=== PATIENT | male | born 1940 | race Asian ===

== ENCOUNTER 2016-04-30 15:51 | Inpatient (IN) | payer MEDICARE, OTHER ==
[~2016-04-30] VITALS: Ht 167.6 cm; Wt 67.1 kg
[2016-04-30] MEDS ORDERED: ALBUTEROL SULFATE 2.5 MG/0.5 ML NEB SOLUTION NEB PRN (19:00)
[2016-04-30] MEDS ORDERED: DOCUSATE SODIUM 283 MG/5 ML MINI-ENEMA PR PRN (19:00)
[2016-04-30] MEDS ORDERED: ACETAMINOPHEN 325 MG TABLET PO PRN (19:00)
[2016-04-30] MEDS ORDERED: ALBUTEROL SULFATE HFA 90 MCG/PUFF 8 GM INHALER IH PRN (19:00)
[2016-04-30 20:33] VITALS: BP 118/70
[2016-04-30] MEDS: ACETAMINOPHEN 325 MG TABLET PO PRN (21:05)
[2016-04-30] MEDS: SENNA 187 MG TABLET PO SCH (21:05)
[2016-04-30] MEDS: MIRTAZAPINE 15 MG TABLET PO SCH (21:05)
[2016-04-30] MEDS: DOCUSATE SODIUM 100 MG CAPSULE PO SCH (21:05)
[2016-04-30] MEDS: TAMSULOSIN HCL 0.4 MG CAPSULE PO SCH (21:06)
[2016-04-30] MEDS: LISINOPRIL 20 MG TABLET PO SCH (21:06)
[2016-04-30 21:30] LABS: APPEARANCE,URINE CLEAR (CLEAR); GLUCOSE, URINE (UA) NEGATIVE (NEGATIVE); KETONES,URINE NEGATIVE (NEGATIVE); LEUKOCYTE ESTERASE ,URINE NEGATIVE (NEGATIVE); OCCULT BLOOD,URINE TRACE (NEGATIVE); PH,URINE 6.5 (5.0-8.0); PROTEIN,URINE NEGATIVE (NEGATIVE)
[2016-04-30 21:45] VITALS: BP 118/74
[2016-04-30 21:47] LABS: SQUAMOUS EPITHELIAL CELL,UR Rare /LPF (None Seen)
[2016-04-30 21:48] LABS: WBC,URINE 0-2 /HPF (0-5)
[2016-04-30] MEDS: HYDROCODONE/CHLORPHEN POLIS 10-8 MG/5 ML ORAL.SYG PO PRN (23:46)
[2016-05-01 00:02] VITALS: BP 122/50
[2016-05-01] MEDS ORDERED: INFLUENZA VIRUS VACCINE QVS 2016-17 (3YR+)/PF 60 MCG/0.5 ML SYRINGE IM ONE (00:30)
[2016-05-01] MEDS ORDERED: PNEUMOCOCCAL VACCINE POLYVALENT 0.5 ML VIAL [PPSV23] IM ONE (00:30)
[2016-05-01] MEDS: ACETAMINOPHEN 325 MG TABLET PO PRN ×3 (04:26→13:30)
[2016-05-01] MEDS: LEVOTHYROXINE SODIUM 50 MCG TABLET PO SCH (07:04)
[2016-05-01 08:04] VITALS: BP 94/53
[2016-05-01 08:05] LABS: BASOPHILS # (AUTO) 0.02 K/uL (0.00-0.20); BASOPHILS % (AUTO) 0.3 % (0.0-2.0); EOSINOPHILS # (AUTO) 0.24 K/uL (0.00-0.70); EOSINOPHILS % (AUTO) 3.63 % (1.0-6.0); HEMATOCRIT 45.8 % (41-53); LYMPHOCYTES # (AUTO) 1.9 K/uL (1.0-4.8); LYMPHOCYTES % (AUTO) 28.6 % (22.0-44.0); MEAN CORPUSCULAR HEMOGLOBIN 28.2 pg (26.0-34.0); MEAN CORPUSCULAR HGB CONC 32.8 G/dL (31.0-37.0); MEAN CORPUSCULAR VOLUME 86 fL (80-100); MONOCYTES # (AUTO) 0.9 K/uL (0.1-1.0); MONOCYTES % (AUTO) 12.7 % (2.0-9.0); NEUTROPHILS # (AUTO) 3.7 K/uL (1.8-7.7); NEUTROPHILS % (AUTO) 54.8 % (40.0-70.0); PLATELET COUNT (AUTO) 172 K/uL (150-450); RED BLOOD CELL COUNT(AUTO) 5.33 MIL/uL (4.50-5.90); RED CELL DISTRIBUTION WIDTH 15.6 % (11.5-14.5); WHITE BLOOD COUNT (AUTO) 6.7 K/uL (4.5-11.0)
[2016-05-01 08:22] LABS: ALANINE AMINOTRANSFERASE 24 U/L (12-78); ALBUMIN 3.5 g/dL (3.4-5.0); ANION GAP 6 mmol/L (8-16); ASPARTATE AMINOTRANSFERASE 19 U/L (15-37); BILIRUBIN,TOTAL 0.6 mg/dL (0.1-1.0); CALCIUM, TOTAL 8.9 mg/dL (8.8-10.5); CARBON DIOXIDE 28 mmol/L (22-29); CHLORIDE 103 mmol/L (98-107); CREATININE 0.91 mg/dL (0.60-1.30); GLOMERULAR FILTR. RATE CALC > 60 mL/min (>60); POTASSIUM 4.1 mmol/L (3.5-5.1); SODIUM SERUM 137 mmol/L (136-145); TOTAL PROTEIN, SERUM 7.4 g/dL (6.4-8.2); UREA NITROGEN, BLOOD 17 mg/dL (7-18)
[2016-05-01] MEDS: DOCUSATE SODIUM 100 MG CAPSULE PO SCH ×2 (08:43→21:17)
[2016-05-01] MEDS: ATORVASTATIN CALCIUM 20 MG TABLET PO SCH (08:43)
[2016-05-01] MEDS: CLOPIDOGREL BISULFATE 75 MG TABLET PO SCH (08:44)
[2016-05-01] MEDS: LISINOPRIL 20 MG TABLET PO SCH ×2 (09:00→21:17)
[2016-05-01 14:15] VITALS: BP 119/64
[2016-05-01 15:47] VITALS: BP 120/75
[2016-05-01] MEDS: HYDROCODONE/CHLORPHEN POLIS 10-8 MG/5 ML ORAL.SYG PO PRN (21:17)
[2016-05-01] MEDS: SENNA 187 MG TABLET PO SCH (21:17)
[2016-05-01] MEDS: TAMSULOSIN HCL 0.4 MG CAPSULE PO SCH (21:18)
[2016-05-01] MEDS: MIRTAZAPINE 15 MG TABLET PO SCH (21:18)
[2016-05-01] MEDS: TEMAZEPAM 15 MG CAPSULE PO PRN (21:18)
[2016-05-01 23:43] VITALS: BP 110/67
[2016-05-02] MEDS: LEVOTHYROXINE SODIUM 50 MCG TABLET PO SCH (06:13)
[2016-05-02 07:57] VITALS: BP 96/74
[2016-05-02] MEDS: ATORVASTATIN CALCIUM 20 MG TABLET PO SCH (08:07)
[2016-05-02] MEDS: CLOPIDOGREL BISULFATE 75 MG TABLET PO SCH (08:07)
[2016-05-02] MEDS: DOCUSATE SODIUM 100 MG CAPSULE PO SCH ×2 (08:07→21:38)
[2016-05-02] MEDS: LISINOPRIL 20 MG TABLET PO SCH ×2 (09:00→21:39)
[2016-05-02 16:25] VITALS: BP 114/72
[2016-05-02 20:26] VITALS: BP 135/75
[2016-05-02] MEDS: TAMSULOSIN HCL 0.4 MG CAPSULE PO SCH (21:38)
[2016-05-02] MEDS: SENNA 187 MG TABLET PO SCH (21:39)
[2016-05-02] MEDS: MIRTAZAPINE 15 MG TABLET PO SCH (21:39)
[2016-05-02] MEDS ORDERED: 0.9% SODIUM CHLORIDE 5 ML NEB SOLUTION NEB ONE (21:46)
[2016-05-02] MEDS ORDERED: TraMADol HCL 50 MG TABLET PO PRN (22:00)
[2016-05-02] MEDS: TEMAZEPAM 15 MG CAPSULE PO PRN (22:09)
[2016-05-02 23:52] VITALS: BP 134/69
[2016-05-03] MEDS: ACETAMINOPHEN 325 MG TABLET PO PRN (00:28)
[2016-05-03] MEDS: LEVOTHYROXINE SODIUM 50 MCG TABLET PO SCH (06:06)
[2016-05-03 07:30] VITALS: BP 102/59
[2016-05-03] MEDS: DOCUSATE SODIUM 100 MG CAPSULE PO SCH ×2 (08:46→21:27)
[2016-05-03] MEDS: ATORVASTATIN CALCIUM 20 MG TABLET PO SCH (08:46)
[2016-05-03] MEDS: CLOPIDOGREL BISULFATE 75 MG TABLET PO SCH (08:46)
[2016-05-03] MEDS: LISINOPRIL 20 MG TABLET PO SCH ×2 (09:00→21:00)
[2016-05-03] MEDS: HYDROCODONE/CHLORPHEN POLIS 10-8 MG/5 ML ORAL.SYG PO PRN ×2 (09:53→23:07)
[2016-05-03 15:57] VITALS: BP 107/72
[2016-05-03 21:00] VITALS: BP 93/52
[2016-05-03] MEDS: TAMSULOSIN HCL 0.4 MG CAPSULE PO SCH (21:27)
[2016-05-03] MEDS: SENNA 187 MG TABLET PO SCH (21:27)
[2016-05-03] MEDS: MIRTAZAPINE 15 MG TABLET PO SCH (21:27)
[2016-05-03] MEDS: TEMAZEPAM 15 MG CAPSULE PO PRN (22:50)
[2016-05-03 23:13] VITALS: BP 120/73
[2016-05-04] MEDS: LEVOTHYROXINE SODIUM 50 MCG TABLET PO SCH (06:18)
[2016-05-04 07:55] VITALS: BP 112/68
[2016-05-04] MEDS: ACETAMINOPHEN 325 MG TABLET PO PRN (07:59)
[2016-05-04] MEDS: ATORVASTATIN CALCIUM 20 MG TABLET PO SCH (08:40)
[2016-05-04] MEDS: LISINOPRIL 20 MG TABLET PO SCH ×2 (08:40→20:33)
[2016-05-04] MEDS: CLOPIDOGREL BISULFATE 75 MG TABLET PO SCH (08:40)
[2016-05-04] MEDS: DOCUSATE SODIUM 100 MG CAPSULE PO SCH ×2 (08:40→20:33)
[2016-05-04] MEDS: HYDROCODONE/CHLORPHEN POLIS 10-8 MG/5 ML ORAL.SYG PO PRN (14:37)
[2016-05-04 15:59] VITALS: BP 114/70
[2016-05-04 20:33] VITALS: BP 131/87
[2016-05-04] MEDS: TAMSULOSIN HCL 0.4 MG CAPSULE PO SCH (20:33)
[2016-05-04] MEDS: SENNA 187 MG TABLET PO SCH (20:33)
[2016-05-04] MEDS: MIRTAZAPINE 15 MG TABLET PO SCH (20:33)
[2016-05-04 23:00] VITALS: BP 111/64
[2016-05-04] MEDS: TEMAZEPAM 15 MG CAPSULE PO PRN (23:19)
[2016-05-05] MEDS: LEVOTHYROXINE SODIUM 50 MCG TABLET PO SCH (06:45)
[2016-05-05 07:21] VITALS: BP 102/61
[2016-05-05] MEDS: CLOPIDOGREL BISULFATE 75 MG TABLET PO SCH (08:40)
[2016-05-05] MEDS: ATORVASTATIN CALCIUM 20 MG TABLET PO SCH (08:41)
[2016-05-05 08:42] VITALS: BP 117/80
[2016-05-05] MEDS: DOCUSATE SODIUM 100 MG CAPSULE PO SCH ×2 (08:42→21:01)
[2016-05-05] MEDS: ACETAMINOPHEN 325 MG TABLET PO PRN (08:42)
[2016-05-05] MEDS: LISINOPRIL 20 MG TABLET PO SCH ×2 (08:46→21:01)
[2016-05-05] MEDS: HYDROCODONE/CHLORPHEN POLIS 10-8 MG/5 ML ORAL.SYG PO PRN (14:38)
[2016-05-05 15:20] VITALS: BP 109/59
[2016-05-05] MEDS: MIRTAZAPINE 15 MG TABLET PO SCH (21:01)
[2016-05-05] MEDS: SENNA 187 MG TABLET PO SCH (21:01)
[2016-05-05] MEDS: TAMSULOSIN HCL 0.4 MG CAPSULE PO SCH (21:01)
[2016-05-05] MEDS: TEMAZEPAM 15 MG CAPSULE PO PRN (22:03)
[2016-05-05 23:36] VITALS: BP 118/60
[2016-05-06] MEDS: LEVOTHYROXINE SODIUM 50 MCG TABLET PO SCH (06:20)
[2016-05-06 08:08] VITALS: BP 105/64
[2016-05-06] MEDS: CLOPIDOGREL BISULFATE 75 MG TABLET PO SCH (08:19)
[2016-05-06] MEDS: DOCUSATE SODIUM 100 MG CAPSULE PO SCH ×2 (08:19→20:49)
[2016-05-06] MEDS: ATORVASTATIN CALCIUM 20 MG TABLET PO SCH (08:19)
[2016-05-06 15:00] VITALS: BP 118/69
[2016-05-06] MEDS: HYDROCODONE/CHLORPHEN POLIS 10-8 MG/5 ML ORAL.SYG PO PRN (16:42)
[2016-05-06] MEDS: TAMSULOSIN HCL 0.4 MG CAPSULE PO SCH (20:48)
[2016-05-06] MEDS: MIRTAZAPINE 15 MG TABLET PO SCH (20:49)
[2016-05-06] MEDS: SENNA 187 MG TABLET PO SCH (20:49)
[2016-05-06] MEDS: LISINOPRIL 10 MG TABLET PO SCH (20:49)
[2016-05-06] MEDS: TEMAZEPAM 15 MG CAPSULE PO PRN (21:35)
[2016-05-06 22:42] VITALS: BP 145/77
[2016-05-07 00:28] VITALS: BP 110/70
[2016-05-07] MEDS: LEVOTHYROXINE SODIUM 50 MCG TABLET PO SCH (06:12)
[2016-05-07 07:30] VITALS: BP 119/70
[2016-05-07] MEDS: DOCUSATE SODIUM 100 MG CAPSULE PO SCH ×2 (09:13→20:55)
[2016-05-07] MEDS: ATORVASTATIN CALCIUM 20 MG TABLET PO SCH (09:13)
[2016-05-07] MEDS: CLOPIDOGREL BISULFATE 75 MG TABLET PO SCH (09:13)
[2016-05-07] MEDS: LISINOPRIL 10 MG TABLET PO SCH ×2 (09:13→20:55)
[2016-05-07] MEDS: HYDROCODONE/CHLORPHEN POLIS 10-8 MG/5 ML ORAL.SYG PO PRN (09:15)
[2016-05-07 16:15] VITALS: BP 113/67
[2016-05-07] MEDS: TAMSULOSIN HCL 0.4 MG CAPSULE PO SCH (20:55)
[2016-05-07] MEDS: SENNA 187 MG TABLET PO SCH (20:55)
[2016-05-07] MEDS: MIRTAZAPINE 15 MG TABLET PO SCH (20:55)
[2016-05-08 05:10] VITALS: BP 93/62
[2016-05-08 05:11] VITALS: BP 104/63
[2016-05-08] MEDS: LEVOTHYROXINE SODIUM 50 MCG TABLET PO SCH (06:07)
[2016-05-08 07:35] VITALS: BP 105/69
[2016-05-08] MEDS: ATORVASTATIN CALCIUM 20 MG TABLET PO SCH (08:21)
[2016-05-08] MEDS: DOCUSATE SODIUM 100 MG CAPSULE PO SCH ×2 (08:21→20:14)
[2016-05-08] MEDS: CLOPIDOGREL BISULFATE 75 MG TABLET PO SCH (08:22)
[2016-05-08] MEDS: LISINOPRIL 10 MG TABLET PO SCH ×2 (08:28→20:13)
[2016-05-08] MEDS: HYDROCODONE/CHLORPHEN POLIS 10-8 MG/5 ML ORAL.SYG PO PRN (12:49)
[2016-05-08 15:23] VITALS: BP 106/71
[2016-05-08] MEDS: TAMSULOSIN HCL 0.4 MG CAPSULE PO SCH (20:13)
[2016-05-08] MEDS: MIRTAZAPINE 15 MG TABLET PO SCH (20:14)
[2016-05-08] MEDS: SENNA 187 MG TABLET PO SCH (20:14)
[2016-05-08 21:00] VITALS: BP 114/68
[2016-05-08] MEDS: TEMAZEPAM 15 MG CAPSULE PO PRN (21:03)
[2016-05-08 23:58] VITALS: BP 103/52
[2016-05-09] MEDS: LEVOTHYROXINE SODIUM 50 MCG TABLET PO SCH (06:22)
[2016-05-09] MEDS: ACETAMINOPHEN 325 MG TABLET PO PRN ×2 (06:23→22:58)
[2016-05-09 07:30] VITALS: BP 112/78
[2016-05-09] MEDS: DOCUSATE SODIUM 100 MG CAPSULE PO SCH ×2 (08:04→20:50)
[2016-05-09] MEDS: ATORVASTATIN CALCIUM 20 MG TABLET PO SCH (08:04)
[2016-05-09] MEDS: CLOPIDOGREL BISULFATE 75 MG TABLET PO SCH (08:05)
[2016-05-09] MEDS: LISINOPRIL 10 MG TABLET PO SCH ×2 (08:05→20:50)
[2016-05-09 15:32] VITALS: BP 112/75
[2016-05-09 20:40] VITALS: BP 147/91
[2016-05-09] MEDS: TAMSULOSIN HCL 0.4 MG CAPSULE PO SCH (20:50)
[2016-05-09] MEDS: MIRTAZAPINE 15 MG TABLET PO SCH (20:50)
[2016-05-09] MEDS: SENNA 187 MG TABLET PO SCH (20:50)
[2016-05-09] MEDS: HYDROCODONE/CHLORPHEN POLIS 10-8 MG/5 ML ORAL.SYG PO PRN (20:51)
[2016-05-09 22:58] VITALS: BP 140/86
[2016-05-10] MEDS: LEVOTHYROXINE SODIUM 50 MCG TABLET PO SCH (06:51)
[2016-05-10 07:36] VITALS: BP 115/71
[2016-05-10] MEDS: ATORVASTATIN CALCIUM 20 MG TABLET PO SCH (08:13)
[2016-05-10] MEDS: LISINOPRIL 10 MG TABLET PO SCH ×2 (08:13→20:20)
[2016-05-10] MEDS: CLOPIDOGREL BISULFATE 75 MG TABLET PO SCH (08:14)
[2016-05-10] MEDS: DOCUSATE SODIUM 100 MG CAPSULE PO SCH ×2 (08:14→20:20)
[2016-05-10 16:01] VITALS: BP 93/63
[2016-05-10] MEDS: TAMSULOSIN HCL 0.4 MG CAPSULE PO SCH (20:20)
[2016-05-10] MEDS: MIRTAZAPINE 15 MG TABLET PO SCH (20:20)
[2016-05-10] MEDS: SENNA 187 MG TABLET PO SCH (20:20)
[2016-05-10] MEDS: HYDROCODONE/CHLORPHEN POLIS 10-8 MG/5 ML ORAL.SYG PO PRN (20:22)
[2016-05-10 20:23] VITALS: BP 101/62
[2016-05-11 00:21] VITALS: BP 125/78
[2016-05-11] MEDS: LEVOTHYROXINE SODIUM 50 MCG TABLET PO SCH (05:44)
[2016-05-11 08:09] VITALS: BP 113/70
[2016-05-11] MEDS: DOCUSATE SODIUM 100 MG CAPSULE PO SCH ×2 (08:15→20:29)
[2016-05-11] MEDS: LISINOPRIL 10 MG TABLET PO SCH ×2 (08:15→20:26)
[2016-05-11] MEDS: CLOPIDOGREL BISULFATE 75 MG TABLET PO SCH (08:16)
[2016-05-11] MEDS: ATORVASTATIN CALCIUM 20 MG TABLET PO SCH (08:16)
[2016-05-11 09:20] VITALS: BP 123/69
[2016-05-11] MEDS: ACETAMINOPHEN 325 MG TABLET PO PRN (09:20)
[2016-05-11 16:32] VITALS: BP 103/69
[2016-05-11] MEDS: MIRTAZAPINE 15 MG TABLET PO SCH (20:26)
[2016-05-11] MEDS: TAMSULOSIN HCL 0.4 MG CAPSULE PO SCH (20:26)
[2016-05-11] MEDS: SENNA 187 MG TABLET PO SCH (20:28)
[2016-05-11 20:29] VITALS: BP 121/66
[2016-05-11] MEDS: HYDROCODONE/CHLORPHEN POLIS 10-8 MG/5 ML ORAL.SYG PO PRN (22:06)
[2016-05-12 00:57] VITALS: BP 108/58
[2016-05-12] MEDS: LEVOTHYROXINE SODIUM 50 MCG TABLET PO SCH (05:49)
[2016-05-12 07:00] VITALS: BP 100/75
[2016-05-12 08:30] VITALS: BP 97/62
[2016-05-12] MEDS: DOCUSATE SODIUM 100 MG CAPSULE PO SCH ×2 (08:33→08:36)
[2016-05-12] MEDS: ATORVASTATIN CALCIUM 20 MG TABLET PO SCH (08:33)
[2016-05-12] MEDS: LISINOPRIL 10 MG TABLET PO SCH (08:34)
[2016-05-12] MEDS: CLOPIDOGREL BISULFATE 75 MG TABLET PO SCH (08:34)
[2016-05-12] MEDS ORDERED: CLOP75 PO (10:52)
[2016-05-12] MEDS ORDERED: TAMS0.4C32 PO (10:52)
[2016-05-12] MEDS ORDERED: LEVO50 PO (10:52)
[2016-05-12] MEDS ORDERED: ATOR20TA86 PO (10:52)
[2016-05-12] MEDS ORDERED: DSS100 PO (10:52)
[2016-05-12] MEDS ORDERED: MIRT15 PO (10:52)
[2016-05-12] MEDS ORDERED: LISI-661 PO (10:52)
== END 2016-05-12 11:45 | disposition home health service (06) | DRG 56 ==
LOC: 2WR 18:16
PROVIDERS: ADMIT Physical Medicine & Rehabilitation; ATTEND Physical Medicine & Rehabilitation
DX: I69.354 Hemiplegia and hemiparesis following cerebral infarction affecting left non-dominant side (principal); I63.8 Other cerebral infarction; I10 Essential (primary) hypertension; J45.909 Unspecified asthma, uncomplicated; J44.9 Chronic obstructive pulmonary disease, unspecified; F32.9 Major depressive disorder, single episode, unspecified; E03.9 Hypothyroidism, unspecified; N40.0 Benign prostatic hyperplasia without lower urinary tract symptoms; M19.90 Unspecified osteoarthritis, unspecified site; G89.29 Other chronic pain; M54.5 Low back pain; Z88.8 Allergy status to other drugs, medicaments and biological substances; Z79.899 Other long term (current) drug therapy; Z79.02 Long term (current) use of antithrombotics/antiplatelets; Z28.21 Immunization not carried out because of patient refusal
CPT/HCPCS: 73503; 87081; 92507; 92508; 92523; 94640; 97110; 97112; 97116; 97150; 97162; 97165; 97530; 97535; 99366; J3535